=== PATIENT | female | born 1985 | race Asian ===

== ENCOUNTER 2017-09-18 14:45 | Inpatient (IN) | payer SELFPAY ==
[~2017-09-18] VITALS: Ht 168 cm; Wt 78.0 kg
[~2017-09-18 14:45] MED LIST: LIDOCAINE 2%, 20 ML MDV INJ ONE; LR 1,000 ML IV.SOLN IV ONE; MORPHINE SULFATE 10MG/10ML PF AMP EP ONE; NS IRRIG SOLN 1000 ML IR ONE; ONDANSETRON HCL 4 MG/2 ML VIAL IVP ONE; OXYTOCIN 10 UNIT/ML VIAL IV ONE; ePHEDrine sulfate 50 MG/ML VIAL IVP ONE; fentaNYL CITRATE/PF 100 MCG/2 ML AMP IVP ONE
[2017-09-18] MEDS ORDERED: OXYTOCIN/0.9 % SODIUM CHLORIDE 1,000 ML IV SCH (16:19)
[2017-09-18] MEDS ORDERED: TERBUTALINE SULFATE 1 MG/ML VIAL SUBCUT ONE (16:30)
[2017-09-18] MEDS ORDERED: MISOPROSTOL 100 MCG TABLET (CYTOTEC) PO PRN (16:30)
[2017-09-18 16:58] LABS: BASOPHILS % (AUTO) 0.3 % (0.0-2.0); EOSINOPHILS % (AUTO) 0.6 % (0.0-4.0); HEMATOCRIT 31.6 % (36-48); HEMOGLOBIN 10.6 g/dL (12.0-16.0); LYMPHOCYTES # (AUTO) 1.6 K/uL (1.0-5.5); LYMPHOCYTES % (AUTO) 19.9 % (20.5-51.5); MEAN CORPUSCULAR HEMOGLOBIN 29 pg (27-31); MEAN CORPUSCULAR HGB CONC 34 % (32-36); MEAN CORPUSCULAR VOLUME 87 fL (79.0-98.0); MONOCYTES # (AUTO) 0.5 K/uL (0.0-1.0); MONOCYTES % (AUTO) 6.6 % (1.7-9.3); NEUTROPHILS % (AUTO) 72.6 % (40.0-70.0); PLATELET COUNT (AUTO) 249 K/uL (130-430); RED BLOOD CELL COUNT(AUTO) 3.63 MIL/uL (4.2-6.2); RED CELL DISTRIBUTION WIDTH 13.5 % (9.0-15.0); WHITE BLOOD COUNT (AUTO) 8.1 K/uL (4.8-10.8)
[2017-09-18] MEDS: LR 1,000 ML IV SCH ×2 (17:30→20:00)
[2017-09-18] MEDS ORDERED: MORPHINE 4 MG/ML INJ. SYRINGE IVP PRN (22:45)
[2017-09-18 22:51] VITALS: BP_SYST 99
[2017-09-19] MEDS ORDERED: fentaNYL CITRATE/PF 100 MCG/2 ML AMP ONE (03:31)
[2017-09-19] MEDS ORDERED: ROPIVACAINE 0.2% 100 ML ONE (03:32)
[2017-09-19] MEDS ORDERED: LR 500 ML IV ONE (04:11)
[2017-09-19] MEDS ORDERED: FENT2mCg/mL-ROPIVA0.2%/NS EPID 150 ML EP SCH (04:15)
[2017-09-19] MEDS: DIPHENHYDRAMINE INJ 50 MG/ML VIAL IVP PRN ×3 (04:24→18:04)
[2017-09-19] MEDS: LR 1,000 ML IV SCH (05:38)
[2017-09-19] MEDS ORDERED: CEFAZOLIN 2 GM IVPB PREMIX 50 ML IV ONE ×2 (10:22→10:30)
[2017-09-19] MEDS ORDERED: LR 1,000 ML IV ONE (10:30)
[2017-09-19] MEDS ORDERED: LR 1,000 ML IV SCH (10:53)
[2017-09-19] MEDS ORDERED: DIPHENHYDRAMINE INJ 50 MG/ML VIAL IM PRN (11:00)
[2017-09-19] MEDS ORDERED: MORPHINE SULFATE 10MG/10ML PF AMP EP SCH (11:00)
[2017-09-19] MEDS ORDERED: NALOXONE HCL 0.4 MG/ML AMP (NARCAN) IVP PRN (11:00)
[2017-09-19] MEDS ORDERED: KETOROLAC TROMETHAMINE 60 MG/2 ML VIAL IM PRN (11:00)
[2017-09-19] MEDS ORDERED: ONDANSETRON HCL 4 MG/2 ML VIAL IVP PRN (11:00)
[2017-09-19] MEDS ORDERED: METOCLOPRAMIDE HCL 10 MG/2 ML VIAL IVP PRN (11:00)
[2017-09-19 11:35] VITALS: BP_SYST 131
[2017-09-19] MEDS ORDERED: OXYTOCIN/0.9 % SODIUM CHLORIDE 1,000 ML IV ONE ×2 (11:41→11:56)
[2017-09-19] MEDS ORDERED: LANOLIN 7 GM OINT. TP PRN (11:45)
[2017-09-19] MEDS ORDERED: MEASLES,MUMPS&RUBELLA VACC/PF 12500 UNIT/0.5 ML VIAL SUBQ PRN (11:45)
[2017-09-19] MEDS ORDERED: ANUSOL 1 EA SUPP.RECT (PREPARATION H) RC PRN (11:45)
[2017-09-19] MEDS ORDERED: OXYCODONE/ACETAMINOPHEN 5-325 TABLET PO PRN (11:45)
[2017-09-19] MEDS ORDERED: CEFAZOLIN 1 GM IVPB PREMIX 50 ML IV SCH ×2 (12:00→18:00)
[2017-09-19] MEDS ORDERED: KETOROLAC TROMETHAMINE 30 MG VIAL ONE (12:00)
[2017-09-19] MEDS: ceFAZolin SODIUM 2 GM in D5W 100 ML IV SCH ×2 (18:04→23:33)
[2017-09-19] MEDS ORDERED: TEMAZEPAM 15 MG CAPSULE PO PRN (21:00)
[2017-09-19] MEDS ORDERED: ceFAZolin SODIUM 2 GM in D5W 100 ML IV SCH (22:00)
[2017-09-19] MEDS ORDERED: CLINDAMYCIN 900 MG in D5W 100 ML IV SCH (22:00)
[2017-09-19] MEDS: CLINDAMYCIN 900 MG in D5W 100 ML IV SCH (23:04)
[2017-09-19] MEDS ORDERED: CLINDAMYCIN 900 mg/50mL D5W 50 ML IV ONE (23:15)
[2017-09-20] MEDS: IBUPROFEN 600 MG TABLET PO SCH ×4 (06:51→22:55)
[2017-09-20 06:52] LABS: BASOPHILS % (AUTO) 0.1 % (0.0-2.0); EOSINOPHILS # (AUTO) 0.1 K/uL (0.0-0.4); EOSINOPHILS % (AUTO) 0.4 % (0.0-4.0); HEMATOCRIT 23.6 % (36-48); HEMOGLOBIN 7.9 g/dL (12.0-16.0); LYMPHOCYTES # (AUTO) 0.9 K/uL (1.0-5.5); LYMPHOCYTES % (AUTO) 5.9 % (20.5-51.5); MEAN CORPUSCULAR HEMOGLOBIN 30 pg (27-31); MEAN CORPUSCULAR HGB CONC 34 % (32-36); MEAN CORPUSCULAR VOLUME 89 fL (79.0-98.0); MONOCYTES # (AUTO) 0.5 K/uL (0.0-1.0); MONOCYTES % (AUTO) 3.5 % (1.7-9.3); NEUTROPHILS # (AUTO) 13.1 K/uL (1.8-7.7); NEUTROPHILS % (AUTO) 90.1 % (40.0-70.0); PLATELET COUNT (AUTO) 185 K/uL (130-430); RED BLOOD CELL COUNT(AUTO) 2.66 MIL/uL (4.2-6.2); RED CELL DISTRIBUTION WIDTH 13.5 % (9.0-15.0); WHITE BLOOD COUNT (AUTO) 14.6 K/uL (4.8-10.8)
[2017-09-20] MEDS: ceFAZolin SODIUM 2 GM in D5W 100 ML IV SCH (06:52)
[2017-09-20] MEDS: CLINDAMYCIN 900 MG in D5W 100 ML IV SCH ×2 (09:00→16:05)
[2017-09-20] MEDS: HYDROcodone/ACETAMIN 5-325 MG TAB (NORCO/ VICODIN) PO PRN ×2 (09:22→15:56)
[2017-09-20] MEDS: FERROUS SULFATE 325 MG TABLET.DR PO SCH ×3 (09:22→21:00)
[2017-09-20] MEDS: DOCUSATE SODIUM 100 MG CAPSULE PO PRN ×2 (09:22→22:55)
[2017-09-20] MEDS: SIMETHICONE 80 MG TAB.CHEW PO PRN ×3 (09:53→22:55)
[2017-09-21] MEDS: HYDROcodone/ACETAMIN 5-325 MG TAB (NORCO/ VICODIN) PO PRN (01:15)
[2017-09-21] MEDS: DOCUSATE SODIUM 100 MG CAPSULE PO PRN ×2 (09:45→21:16)
[2017-09-21] MEDS: OXYCODONE/ACETAMINOPHEN 5-325 TABLET PO PRN ×2 (09:45→21:15)
[2017-09-21] MEDS: FERROUS SULFATE 325 MG TABLET.DR PO SCH ×3 (09:45→21:14)
[2017-09-21] MEDS: SIMETHICONE 80 MG TAB.CHEW PO PRN ×2 (09:46→17:53)
[2017-09-21] MEDS: IBUPROFEN 600 MG TABLET PO SCH ×3 (11:56→23:40)
[2017-09-22] MEDS: SIMETHICONE 80 MG TAB.CHEW PO PRN ×2 (00:54→05:48)
[2017-09-22] MEDS: IBUPROFEN 600 MG TABLET PO SCH ×2 (05:45→12:29)
[2017-09-22] MEDS: OXYCODONE/ACETAMINOPHEN 5-325 TABLET PO PRN (10:52)
== END 2017-09-22 14:20 | disposition home or self-care (01) | DRG 765 ==
LOC: SPU 14:45
PROVIDERS: ADMIT Obstetrics & Gynecology; ATTEND Obstetrics & Gynecology
PROC: 10D00Z1 Extraction of Products of Conception, Low, Open Approach (ICD-10-PCS; 2017-09-19)
PROC: 3E033VJ Introduction of Other Hormone into Peripheral Vein, Percutaneous Approach (ICD-10-PCS; principal; 2017-09-19 10:00)
DX: O62.2 Other uterine inertia (principal); O98.42 Viral hepatitis complicating childbirth; B19.10 Unspecified viral hepatitis B without hepatic coma; O48.1 Prolonged pregnancy; Z3A.40 40 weeks gestation of pregnancy; Z37.0 Single live birth
CPT/HCPCS: 36415; 85025; 86592; 86886; 86900; 86901; 94760; J0690; J1200; J1885; J2001; J2274; J2405; J2590; J2795; J3010; J3490; J7060; J7120